=== PATIENT | female | born 1990 | race Two or more races ===

== ENCOUNTER 2022-11-14 08:15 | Outpatient (CLI) | payer OTHER | END 2022-11-14 08:20 | disposition home or self-care (01) | LOC: RX STUDY 08:15 | PROVIDERS: ATTEND Obstetrics & Gynecology Gynecology | DX: N70.01 Acute salpingitis (principal) ==

== ENCOUNTER 2023-10-22 09:01 | Outpatient (CLI) | payer OTHER | END 2023-10-22 09:14 | disposition home or self-care (01) | LOC: RX STUDY 09:01 | PROVIDERS: ATTEND Specialist | DX: N97.1 Female infertility of tubal origin (principal) ==

== ENCOUNTER 2024-05-31 16:23 | Emergency (ER) | payer OTHER ==
[~2024-05-31] VITALS: Ht 165.1 cm; Wt 63.5 kg
[2024-05-31] MEDS ORDERED: ONDANSETRON HCL 2 MG/ML VIAL IV ONE (17:15)
[2024-05-31] MEDS ORDERED: KETOROLAC TROMETHAMINE 60 MG VIAL IM ONE ×2 (17:15→17:44)
[2024-05-31] MEDS ORDERED: FAMOtidine 10 MG/ML (4ML VIAL) IV ONE (17:15)
[2024-05-31] MEDS ORDERED: 0.9 % SODIUM CHLORIDE 1,000 ML IV ONE (17:30)
[2024-05-31] MEDS ORDERED: ONDANSETRON HCL 2 MG/ML VIAL ONE (17:44)
[2024-05-31] MEDS ORDERED: FAMOTIDINE/PF 20 MG/2 ML VIAL ONE (17:45)
[2024-05-31 18:23] LABS: HEMATOCRIT 38.9 % (36.0-45.00); HEMOGLOBIN 13.2 g/dL (12.0-15.00); MEAN CORPUSCULAR HEMOGLOBIN 31.1 pg (27.00-32.0); MEAN CORPUSCULAR HGB CONC 33.8 g/dl (32.0-36.0); PLATELET COUNT 224 K/uL (150-450); RED BLOOD COUNT 4.23 M/uL (4.00-6.00)
[2024-05-31 18:54] LABS: ALBUMIN 3.8 gm/dL (3.4-5.0); BILIRUBIN TOTAL 0.31 mg/dL (0.3-1.2); CALCIUM 9.3 mg/dL (8.5-10.1); CREATININE SERUM 0.84 mg/dL (0.55-1.02); GFR 78.08; GLOBULINA 3.9 G/DL (2.4-3.5); POTASSIUM 4.24 mEq/L (3.5-5.1); TOTAL PROTEIN 7.7 gm/dL (6.4-8.2)
[2024-05-31] MEDS ORDERED: ACETAMINOPHEN 500 MG GEL..CAP PO ONE (19:56)
[2024-05-31] MEDS ORDERED: MORPHINE SULFATE 4 MG/ML VIAL IV ONE ×2 (20:45→23:45)
[2024-05-31] MEDS ORDERED: PROMETHAZINE HCL 50 MG/ML AMPUL IM ONE ×2 (20:45→20:46)
[2024-06-01 00:29] LABS: HEMATOCRIT 37.7 % (36.0-45.00); HEMOGLOBIN 12.6 g/dL (12.0-15.00); MEAN CELL VOLUME 92.6 fL (80.00-100.00); MEAN CORPUSCULAR HEMOGLOBIN 30.9 pg (27.00-32.0); MEAN CORPUSCULAR HGB CONC 33.3 g/dl (32.0-36.0); PLATELET COUNT 218 K/uL (150-450); RED BLOOD COUNT 4.07 M/uL (4.00-6.00); RED CELL DISTRIBUTION WIDTH 12.6 % (11.5-14.5)
[2024-06-01] MEDS ORDERED: MEPERIDINE HCL/PF 25 MG/ML VIAL IV ONE (02:30)
== END 2024-06-01 07:59 ==
LOC: ER 16:23
PROVIDERS: General Practice
DX: R10.9 Unspecified abdominal pain (principal); R11.2 Nausea with vomiting, unspecified; R18.8 Other ascites

== ENCOUNTER 2025-03-28 13:25 | Outpatient (CLI) | payer OTHER | END 2025-03-28 14:52 | disposition home or self-care (01) | LOC: NST 13:25 | PROVIDERS: ATTEND Obstetrics & Gynecology Maternal & Fetal Medicine | DX: Z34.83 Encounter for supervision of other normal pregnancy, third trimester (principal) ==

== ENCOUNTER 2025-03-30 14:00 | Inpatient (IN) | payer OTHER ==
[~2025-03-30] VITALS: Ht 165.1 cm; Wt 2.7 kg
[2025-04-11 12:07] VITALS: BP 114/69
[2025-04-11] MEDS ORDERED: PRENATAL DHA200 MG PO (12:08)
[2025-04-11] MEDS ORDERED: PROBIOTIC250 MG (12:09)
[2025-04-11] MEDS ORDERED: ADULT ASPIRIN81 MG PO (12:09)
[2025-04-11] MEDS ORDERED: RINGERS SOLUTION,LACTATED 1,000 ML IV SCH (12:20)
[2025-04-11 13:02] LABS: BASO % 0.4 % (0.1-1.2); EOS # 0.02 (0.04-0.54); EOS % 0.4 % (0.7-7.0); LYMPH # 1.46 (1.18-3.74); LYMPH % 27.0 % (19.3-53.1); MEAN PLATELET VOLUME 12.50 fl (9.4-12.4); MONO # 0.38 (0.24-0.82); MONO % 7.0 % (4.7-12.5); NEUT # 3.51 (1.56-6.13); NEUT % 65.0 % (34.0-71.1); RED CELL DISTRIBUTION WIDTH 13.4 % (11.6-14.4)
[2025-04-11 13:22] LABS: INR < 0.93
[2025-04-11 14:01] LABS: ALT/SGPT 36.0 U/L (12-78); AST/SGOT 37.0 U/L (15-37); BILIRUBIN TOTAL 0.34 mg/dL (0.3-1.2); BUN CREA RATIO 16.0 (7.0-25.0); CREATININE SERUM 0.74 mg/dL (0.55-1.02); GFR 89.84; GLOBULINA 4.0 G/DL (2.4-3.5); GLUCOSE FASTING 61.0 mg/dL (65-100); OSMOLALITY SERUM 273.0 MOSM/KG (275-295)
[2025-04-11 15:26] VITALS: BP 108/68
[2025-04-11] MEDS ORDERED: MISOPROSTOL 25 MCG TABLET VAG ONE (15:45)
[2025-04-11] MEDS ORDERED: MORPHINE SULFATE 4 MG/ML CARTRIDGE IV PRN (17:00)
[2025-04-11 19:04] VITALS: BP 109/60
[2025-04-11 23:22] VITALS: BP 117/67
[2025-04-12 03:53] VITALS: BP 111/60
[2025-04-12] MEDS ORDERED: OXYTOCIN 500 ML IV ONE (08:15)
[2025-04-12 08:17] VITALS: BP 110/63
[2025-04-12 11:26] VITALS: BP 120/63
[2025-04-12 15:42] VITALS: BP 121/65
[2025-04-12 19:50] VITALS: BP 121/61
[2025-04-12] MEDS ORDERED: MORPHINE SULFATE 4 MG/ML VIAL IV SCH (21:43)
[2025-04-12] MEDS ORDERED: KETOROLAC TROMETHAMINE 30 MG VIAL IV SCH (21:44)
[2025-04-12] MEDS ORDERED: OXYTOCIN 1,000 ML IV ONE (21:45)
[2025-04-12] MEDS ORDERED: OXYTOCIN 10 UNITS/ML VIAL IV ONE (22:00)
[2025-04-12] MEDS ORDERED: ERYTHROMYCIN BASE OPHT 1GM EACH TUBE OP ONE (22:00)
[2025-04-12] MEDS ORDERED: CEFAZOLIN SODIUM 1,000 MG VIAL IV SCH (22:30)
[2025-04-12] MEDS ORDERED: METOCLOPRAMIDE HCL 5 MG/ML VIAL IV ONE (22:30)
[2025-04-13] MEDS ORDERED: MORPHINE SULFATE 4 MG/ML VIAL IV ONE ×2 (00:15→00:45)
[2025-04-13 03:17] VITALS: BP 121/68
[2025-04-13] MEDS ORDERED: ACETAMINOPHEN 500 MG GEL..CAP PO SCH (06:00)
[2025-04-13 06:14] LABS: BASO % 0.2 % (0.1-1.2); EOS # 0.00 (0.04-0.54); EOS % 0.0 % (0.7-7.0); LYMPH # 1.68 (1.18-3.74); LYMPH % 17.0 % (19.3-53.1); MEAN PLATELET VOLUME 12.40 fl (9.4-12.4); MONO # 0.48 (0.24-0.82); MONO % 4.9 % (4.7-12.5); NEUT # 7.67 (1.56-6.13); NEUT % 77.6 % (34.0-71.1); RED CELL DISTRIBUTION WIDTH 13.4 % (11.6-14.4)
[2025-04-13 08:56] VITALS: BP 114/69; O2SAT 99
[2025-04-13] MEDS ORDERED: DOCUSATE SODIUM 100MG CAP PO SCH (09:00)
[2025-04-13] MEDS ORDERED: SIMETHICONE 125 MG CAPSULE PO SCH (09:00)
[2025-04-13] MEDS ORDERED: PNV,CALCIUM 72/IRON/FOLIC ACID 1 TAB TABLET PO SCH (09:00)
[2025-04-13] MEDS ORDERED: GABAPENTIN 300 MG CAPSULE PO SCH (09:00)
[2025-04-13 16:00] VITALS: BP 107/65
[2025-04-14 02:56] VITALS: BP 108/66; O2SAT 98
[2025-04-14 08:30] VITALS: BP 122/75; O2SAT 100
== END 2025-04-14 13:25 | disposition home or self-care (01) | DRG 788 ==
LOC: LDR 04-11 11:29 → OB/GYN 04-12 21:55
PROVIDERS: Obstetrics & Gynecology Gynecology; ADMIT Obstetrics & Gynecology Maternal & Fetal Medicine; ATTEND Obstetrics & Gynecology Maternal & Fetal Medicine
PROC: 4A1HXCZ Monitoring of Products of Conception, Cardiac Rate, External Approach (ICD-10-PCS; 2025-04-11)
PROC: 3E0P7VZ Introduction of Hormone into Female Reproductive, Via Natural or Artificial Opening (ICD-10-PCS; 2025-04-11)
PROC: 3E033VJ Introduction of Other Hormone into Peripheral Vein, Percutaneous Approach (ICD-10-PCS; 2025-04-12)
PROC: 10D00Z1 Extraction of Products of Conception, Low, Open Approach (ICD-10-PCS; principal; 2025-04-12 21:00)
DX: O76 Abnormality in fetal heart rate and rhythm complicating labor and delivery (principal); O36.8330 Maternal care for abnormalities of the fetal heart rate or rhythm, third trimester, not applicable or unspecified; Z3A.39 39 weeks gestation of pregnancy; Z37.0 Single live birth

== ENCOUNTER 2025-04-04 10:30 | Outpatient (CLI) | payer OTHER | END 2025-04-04 11:30 | disposition home or self-care (01) | LOC: NST 10:30 | PROVIDERS: ATTEND Obstetrics & Gynecology | DX: Z34.83 Encounter for supervision of other normal pregnancy, third trimester (principal) ==

== ENCOUNTER → 2025-04-10 | Outpatient (CLI) | payer OTHER ==
[~2025-04-10] MED LIST: ADULT ASPIRIN81 MG PO; PRENATAL DHA200 MG PO; PROBIOTIC250 MG
== END | disposition home or self-care (01) ==
LOC: NST 10:25
PROVIDERS: ATTEND Obstetrics & Gynecology
DX: Z34.83 Encounter for supervision of other normal pregnancy, third trimester (principal)